=== PATIENT | female | born 1950 | race Caucasian/White ===

== ENCOUNTER → 2021-04-13 | Outpatient (CLI) | payer MEDICARE ==
--- NOTE | 2021-04-24 16:57 | PE ---
Nuclear medicine PET/CT HISTORY: M 25.561, solitary pulmonary nodule, initial Patient received 10.8 mCi F-18 FDG intravenously delayed scanning was performed from the skull base t o the mid thighs. Localization and attenuation correction CT scan was performed. No comparisons Chest and neck: There is no supraclavicular or cervical adenopathy. There is a mass in the right uppe r lobe measuring approximately 7.5 cm in transverse dimension by 4.7 cm in AP dimension extending fro m the right hilum to the right lateral pleural margin with associated hypermetabolic uptake SUV 14, r ight upper lobe bronchus apparently terminates within the mass. There are bilateral pulmonary nodules , approximately 50 nodules present, associated hypermetabolic uptake approximately 3.5-4.4, 2.4 for t he smaller lesions on the left, 6.6 posterior right lower lobe lung nodules to size 11. There is asso ciated very hypermetabolic uptake. No pericardial effusion. Subcarinal node shows hypermetabolic upta ke, SUV 2.6, retrocaval pretracheal adenopathy is present with associated uptake, SUV 8. There is a hiatal hernia present. Uptake along the tongue may be physiologic. ABDOMEN: No evident adrenal mass. No ascites. Cortical cyst is associated with the right kidney. No r etroperitoneal adenopathy. Extensive diverticular change noted in sigmoid colon. Probable physiologic uptake associated with the bowel. Osseous structures show no suspicious uptake. Degenerative disc changes and facet arthropathy noted i n the lower lumbar spine. IMPRESSION: Right upper lobe lung mass, findings may represent bronchogenic carcinoma, metastatic dis ease
== END | disposition home or self-care (01) ==
LOC: RADPETMAIN 16:52
PROVIDERS: ATTEND Internal Medicine Hematology & Oncology
DX: R91.8 Other nonspecific abnormal finding of lung field (principal)
CPT/HCPCS: 78815; A9552

== ENCOUNTER 2021-05-31 09:35 | Day surgery (SDC) | payer MEDICARE ==
[2021-05-28 15:53] VITALS: BMI 19.1
[~2021-05-31 09:35] MED LIST: ALBUTEROL NEB (CONC) 2.5 MG/0.5 ML INHALATION ONE; ATROPINE SULFATE 0.4 MG/ML 1 ML VIAL IM ONE; LACTATED RINGERS 1,000 ML IV SCH; LIDOCAINE 2% (PF) 20 MG/ML 5 ML VIAL INHALATION ONE; LIDOCAINE VISCOUS 300 MG/15 ML CUP MUCOUS MEM ONE; SODIUM CHLORIDE 0.9% 1,000 ML IV SCH
[2021-05-31] MEDS ORDERED: LACTATED RINGERS 1,000 ML IV ONE ×2 (10:14)
[2021-05-31] MEDS ORDERED: LIDOCAINE 1% (10MG/ML) FOR IV START INTRADERMA ONE (10:30)
--- NOTE | 2021-05-31 11:27 | CT ---
EXAMINATION TYPE: CT Chest juhi Beyer Protocol DATE OF EXAM: 05/31/2021 COMPARISON: PET/CT 04/13/2021 HISTORY: Pulmonary nodules/mass CT DLP: 570 mGycm Automated exposure control for dose reduction was used. FINDINGS: There are numerous pulmonary nodules the largest seen involving the right upper lobe extending from t he right hilum to the pleura measuring 6 x 5.5 cm. No consolidative process or pleural effusion. No p neumothorax. Linear areas of atelectasis or scar noted. Atherosclerotic change of the aorta but no aneurysm. Heart size normal with mild coronary artery calc ification. Trace of pericardial fluid noted. Benign-appearing right renal cyst and changes of diverticulosis. There is thickening of the bilateral adrenal glands metastases diagnosis. Small hiatal hernia noted. Hypertrophic and degenerative changes of the spine. IMPRESSION: 1. Numerous bilateral pulmonary masses the largest measuring 6 cm in the right upper lobe compatible with malignancy and metastases. 2. Bilateral thickening of the adrenal glands. The largest is noted on the left measuring 1.4 cm -6 H [place] units suggestive of adrenal adenoma being favored over metastasis
[2021-05-31] MEDS ORDERED: fentaNYL (PF) 50 MCG/ML 2 ML AMP ONE (12:11)
[2021-05-31] MEDS ORDERED: SUCCINYLCHOLINE CHLORIDE 100 MG/5 ML SYR IV ONE (12:11)
[2021-05-31] MEDS ORDERED: ePHEDrine SULFATE/0.9% NACL/PF 50 MG/5 ML SYRINGE IV ONE (12:11)
[2021-05-31] MEDS ORDERED: PHENYLEPHRINE-0.9% NACL SYG 1,000 MCG/10 ML SYRINGE ONE (12:11)
[2021-05-31] MEDS ORDERED: PROPOFOL 10 MG/ML 20 ML VIAL IV ONE (12:11)
[2021-05-31] MEDS ORDERED: LIDOCAINE 1% INJ 10MG/ML (20 ML MDV) ONE (12:11)
[2021-05-31] MEDS ORDERED: MIDAZOLAM 2 MG/2 ML VIAL ONE (12:11)
[2021-05-31 13:20] VITALS: TEMP 97.7
[2021-05-31 13:56] VITALS: RESP 16
[2021-05-31] MEDS ORDERED: ONDANSETRON 4 MG/2 ML VIAL ONE (14:12)
[2021-05-31] MEDS ORDERED: ONDANSETRON 4 MG/2 ML VIAL IVP ONE (14:16)
[2021-05-31 14:19] VITALS: PULSE 79
--- NOTE | 2021-05-31 14:19 | XR ---
EXAMINATION TYPE: XR chest 1V portable DATE OF EXAM: 05/31/2021 Comparison: Correlation PET/CT 04/13/2021 Clinical History: 71-year-old female Post right lung biopsy Findings: Heart upper limits of normal in size. Hyperinflation. Extensive bilateral rounded masses, consistent fluid in the right upper lobe. No appreciable pneumothorax. No pleural effusion. Impression: COPD with extensive bilateral rounded masses, confluent in the right upper lobe. No appreciable pneum othorax.
[2021-05-31 14:49] VITALS: BP 116/64
[2021-05-31 17:06] LABS: Color,BF Red
[2021-05-31 17:07] LABS: Appearance,BF Hazy; Nucleated Cells, Body Fluid 78 /uL; RBC, Body Fluid 8911 /uL
[2021-05-31 17:09] LABS: Mononuclear WBC,Body Fluid 70 %; Polynuclear WBC,Body Fluid 30 %; Total Cells Counted,Body Fluid 100
--- NOTE | 2021-05-31 22:25 | PCN ---
PROCEDURE NOTE PULMONARY/CRITICAL CARE PROCEDURE NOTE: PROCEDURE PERFORMED: Navigational bronchoscopy PREOPERATIVE DIAGNOSIS: Rule out lung cancer. POSTOPERATIVE DIAGNOSIS: Rule out lung cancer. There was informed consent and universal timeout. The patient's procedure was done in room #1 endoscopy. OPERATORS: Dr. Prescott and Dr. Salgado. ANESTHESIA: The anesthesiology team gave general anesthesia. DESCRIPTION OF PROCEDURE: After the patient was anesthetized, and on the ventilator, and with an orally placed endotracheal tube. The bronchoscope was inserted through the bronchoscope adapter connected to the endotracheal tube. We used a 800APP electromagnetic navigational system to help us identify the precise location of the lesion. Initially we did needle biopsies of the right upper lobe. Then, multiple transbronchial biopsies were done of the right upper lobe. Finally some endobronchial biopsies were done of the right upper lobe. Subsequent to all of that, which the patient tolerated well, we did brushes of the right upper lobe and a form of BAL of the right upper lobe. There was minimal bleeding. Pictures were taken. The right upper lobe was extremely narrowed, difficult to get into. We were able to traverse it though with some difficulty. The patient tolerated the procedure well. She was rock solid stable throughout the entire procedure. Chest x-ray will be done after the procedure. The patient will be recovered. There were no immediate complications. The tissue and other specimens will be sent to the laboratory for analysis. MMODL / IJN: [id number] /
== END 2021-05-31 15:18 | disposition home or self-care (01) ==
LOC: ORWHC2ENDO 09:35
PROVIDERS: ATTEND Internal Medicine Critical Care Medicine
DX: J44.9 Chronic obstructive pulmonary disease, unspecified (principal)
CPT/HCPCS: 31629; 31625; 31623; 31624; 31627; 89050; 71045; 71250; J2250; J2405; J2001; J3010; J2370; J0330; J2704

== ENCOUNTER → 2021-06-08 | Outpatient (CLI) | payer MEDICARE ==
--- NOTE | 2021-06-08 19:55 | MR ---
EXAMINATION TYPE: MR brain wo/w con DATE OF EXAM: 06/08/2021 COMPARISON: None HISTORY: Lung cancer. CONTRAST: Standard multiplanar, multisequence MRI departmental protocol utilizing 5 mL intravenous Gadavist mirna olinium contrast. There is cerebral cortical atrophy. There is no mass effect nor midline shift. There is no sign of in tracranial hemorrhage. Diffusion images show no evidence of an acute infarct. The brainstem is intact . There are multiple small foci of increased signal in the periventricular white matter. These measur e up to 5 mm. Total number is more than 25. The cerebellum is intact. Corpus callosum is intact. Sell a turcica is intact. The contrast images show no pathologic enhancement. IMPRESSION: Cerebral atrophy. White matter signal changes consistent with microvascular ischemia or demyelinating disease. No evidence of cortical infarct. No evidence of metastatic disease.
== END | disposition home or self-care (01) ==
LOC: RADMRIMAIN 18:42
PROVIDERS: ATTEND Internal Medicine Hematology & Oncology
DX: C34.11 Malignant neoplasm of upper lobe, right bronchus or lung (principal); G31.9 Degenerative disease of nervous system, unspecified
CPT/HCPCS: 70553; A9585

== ENCOUNTER → 2021-08-16 | Outpatient (CLI) | payer MEDICARE ==
[~2021-08-16] MED LIST changes: -ALBUTEROL NEB (CONC) 2.5 MG/0.5 ML INHALATION ONE; -ATROPINE SULFATE 0.4 MG/ML 1 ML VIAL IM ONE; +DEXAMETHASONE SOD PHOSPHATE 10 MG/ML 1 ML VIAL IV NR; +FAMOTIDINE 20 MG/2 ML VIAL IV NR; -LACTATED RINGERS 1,000 ML IV SCH; -LIDOCAINE 2% (PF) 20 MG/ML 5 ML VIAL INHALATION ONE; -LIDOCAINE VISCOUS 300 MG/15 ML CUP MUCOUS MEM ONE; +SODIUM CHLORIDE 0.9% 1,000 ML IV NR; -SODIUM CHLORIDE 0.9% 1,000 ML IV SCH; +SODIUM CHLORIDE 0.9% 500 ML 500 ML in EMPTY BAG 1 BAG IV PRN
[2021-08-16 12:45] VITALS: BP 124/63; PULSE 86; RESP 15; TEMP 98
[2021-08-16] MEDS: ONDANSETRON 16 MG in SODIUM CHLORIDE 0.9% 50 ML IVPB NR ×2 (13:10→13:15)
== END ==
LOC: PROCWHC3 12:30
PROVIDERS: ATTEND Internal Medicine Hematology & Oncology
DX: C34.11 Malignant neoplasm of upper lobe, right bronchus or lung (principal); Z88.5 Allergy status to narcotic agent; Z88.2 Allergy status to sulfonamides; Z91.012 Allergy to eggs
CPT/HCPCS: 96360; 96361; J1100; J2405

== ENCOUNTER → 2021-09-19 | Outpatient (CLI) | payer MEDICARE ==
[2021-09-19 13:55] LABS: African American GFR (CKD) >90 (>60 ml/min/1.73 sqM); Blood Urea Nitrogen 10 mg/dL (7-17); Non-African American GFR(CKD) 90 (>60 ml/min/1.73 sqM)
--- NOTE | 2021-09-19 14:46 | CT ---
EXAMINATION TYPE: CT chest w con DATE OF EXAM: 09/19/2021 COMPARISON: 05/31/2021 HISTORY: Lung cancer, stage 4 CT DLP: 97.7 mGycm Automated exposure control for dose reduction was used. CONTRAST: CT scan of the chest is performed with IV Contrast, patient injected with 95 mL of Isovue 300. FINDINGS: LUNGS: Right suprahilar mass is redemonstrated and currently measures 6.2 x 3.9 x 5.0 cm versus prior measurement of 6.7 x 5.2 x 6.1 cm. Enlarging mass right lower lobe currently measures 4.2 x 4.1 cm v ersus 3.7 x 3.3 cm. There are additional lung masses seen throughout both lung pleitez 2 numerous to c ount. MEDIASTINUM: There are no greater than 1 cm hilar or mediastinal lymph nodes. No pericardial effusi on is seen. Thoracic aorta is of normal caliber. The heart is not enlarged. UPPER ABDOMEN: Left adrenal mass is noted to measure 1.7 cm. OTHER: No additional significant abnormality is seen. IMPRESSION: Enlarging pulmonary nodules and masses noted bilaterally compatible with metastatic disease. Left adr enal mass.
== END | disposition home or self-care (01) ==
LOC: RADCTMAIN 12:59
PROVIDERS: ATTEND Internal Medicine Hematology & Oncology
DX: C34.11 Malignant neoplasm of upper lobe, right bronchus or lung (principal); R91.8 Other nonspecific abnormal finding of lung field; E27.8 Other specified disorders of adrenal gland
CPT/HCPCS: 82565; 84520; 71260; 36415; Q9967

== ENCOUNTER 2022-03-25 18:41 | Inpatient (IN) | payer MEDICARE ==
[2022-03-25] MEDS ORDERED: PANTOPRAZOLE 40 MG/10 ML VIAL IVP STA (19:18)
--- NOTE | 2022-03-25 19:21 | ED ---
GI Bleed HPI - General Chief complaint: GI Bleed Stated complaint: GI Bleed Time Seen by Provider: 03/25/22 18:46 Source: patient Mode of arrival: EMS Limitations: no limitations - History of Present Illness Initial comments: 72-year-old female with history of lung cancer on hospice presents to the emergency department with reported GI bleeding. States that she began having bright red blood with clots coming from her rectum which started 2 hours ago. She does have a history of similar in the past due to diverticulitis. She denies any abdominal pain. No rectal pain. She is not on any blood thinners. She is on hospice because of lung cancer. Sees Dr. Thurman and was on chemotherapy up until 5 weeks ago when she stopped. She denies any changes in her urination. No other alleviating, precipitating or modifying factors - Related Data Home Medications Medication Instructions Recorded Confirmed Bisoprolol-Hctz 5-6.25 mg [Ziac 1 tab PO DAILY 05/28/21 03/25/22 5-6.25 MG] Dicyclomine [Bentyl] 10 mg PO DAILY 05/28/21 03/25/22 Hydromorphone 1mg/Ml 2 mg PO BID 03/25/22 03/25/22 Hyoscyamine Sulfate [Levsin-Sl] 0.125 mg SL Q4H PRN 03/25/22 03/25/22 LORazepam [Ativan] 0.5 mg PO TID 03/25/22 03/25/22 Melatonin 3 mg PO HS 03/25/22 03/25/22 dexAMETHasone 4 mg PO BID 03/25/22 03/25/22 Allergies Allergy/AdvReac Type Severity Reaction Status Date / Time codeine AdvReac Nausea & Verified 03/25/22 21:38 Vomiting egg AdvReac Nausea & Verified 03/25/22 21:38 Vomiting sulfamethoxazole AdvReac Nausea & Verified 03/25/22 21:38 [From Bactrim] Vomiting trimethoprim [From Bactrim] AdvReac Nausea & Verified 03/25/22 21:38 Vomiting Review of Systems ROS Statement: Those systems with pertinent positive or pertinent negative responses have been documented in the HPI. ROS Other: All systems not noted in ROS Statement are negative. Past Medical History Past Medical History: Cancer, Hypertension Additional Past Medical History / Comment(s): diverticulitis. vertigo History of Any Multi-Drug Resistant Organisms: None Reported Past Surgical History: Appendectomy, Tonsillectomy Additional Past Surgical History / Comment(s): wedge from each ovary removed and fallopian tubes repaired Past Anesthesia/Blood Transfusion Reactions: No Reported Reaction Additional Past Anesthesia/Blood Transfusion Reaction / Comment(s): hx of vertigo Past Psychological History: Anxiety Smoking Status: Former smoker Past Alcohol Use History: Occasional Past Drug Use History: None Reported - Past Family History Mother Family Medical History: Cancer General Exam Limitations: no limitations General appearance: alert, in no apparent distress, cachectic Head exam: Present: atraumatic, normocephalic, normal inspection Eye exam: Present: normal appearance, PERRL, EOMI. Absent: scleral icterus, conjunctival injection, periorbital swelling ENT exam: Present: normal exam, mucous membranes moist Neck exam: Present: normal inspection. Absent: tenderness, meningismus, lymphadenopathy Respiratory exam: Present: normal lung sounds bilaterally. Absent: respiratory distress, wheezes, rales, rhonchi, stridor Cardiovascular Exam: Present: regular rate, normal rhythm, normal heart sounds. Absent: systolic murmur, diastolic murmur, rubs, gallop, clicks GI/Abdominal exam: Present: soft, normal bowel sounds. Absent: distended, tenderness, guarding, rebound, rigid Rectal exam: Present: bloody stool, other (copious bright red bloody stool with significant clotting). Absent: mass Extremities exam: Present: normal inspection, full ROM, normal capillary refill. Absent: tenderness, pedal edema, joint swelling, calf tenderness Back exam: Present: normal inspection Neurological exam: Present: alert, oriented X3, CN II-XII intact Psychiatric exam: Present: normal affect, normal mood Skin exam: Present: warm, dry, intact, normal color. Absent: rash Course Vital Signs 03/25/22 03/25/22 03/25/22 18:52 20:42 22:28 Temperature 97.5 F L Pulse Rate 87 90 89 Respiratory 16 22 20 Rate Blood Pressure 110/69 99/55 93/57 O2 Sat by Pulse 98 99 100 Oximetry - Reevaluation(s) Reevaluation #1: Spoke with Dr. Santana who was aware that the patient is in the emergency department 03/25/22 21:18 Reevaluation #2: Spoke with Dr. Nieto who agrees to admit the patient to the ICU 03/25/22 21:23 Medical Decision Making - Medical Decision Making Upon arrival patient is placed into room 24. Rectal exam is performed which does demonstrate significant rectal bleeding with large clots. IV is established laboratory studies are conduct. White count 18.7. Hemoglobin 10.7. Sodium 124. Lactic acid 2.7. CT is performed of the abdomen which demonstrates diverticulosis without diverticulitis. Patient is on hospice however I did speak with the patient and the family at bedside. They would like everything completed to rectify the patient's current condition. They agreed to disenroll from hospice and be admitted to the hospital. They admits to make the patient a full code in the event that she needs any type of procedure. Family does consent to blood. Because of this the patient will be admitted to the ICU. Spoke with Dr. Johnson who agreed to admit the patient. Spoke with Dr. Santana who is aware that the patient is in the emergency room. Spoke with Dr. Chris who agrees to admit the patient to the ICU. She remained in hemodynamically stable condition. - Lab Data Result diagrams: 03/26/22 05:54 03/26/22 05:54 Lab Results 03/25/22 03/25/22 03/25/22 Range/Units 19:21 19:21 19:21 WBC 18.7 H (3.8-10.6) k/uL RBC 3.54 L (3.80-5.40) m/uL Hgb 10.7 L (11.4-16.0) gm/dL Hct 33.4 L (34.0-46.0) % MCV 94.4 (80.0-100.0) fL MCH 30.3 (25.0-35.0) pg MCHC 32.0 (31.0-37.0) g/dL RDW 15.2 (11.5-15.5) % Plt Count 224 (150-450) k/uL MPV 7.1 Neutrophils % 86 % Lymphocytes % 8 % Monocytes % 4 % Eosinophils % 0 % Basophils % 1 % Neutrophils # 16.2 H (1.3-7.7) k/uL Lymphocytes # 1.5 (1.0-4.8) k/uL Monocytes # 0.7 (0-1.0) k/uL Eosinophils # 0.1 (0-0.7) k/uL Basophils # 0.1 (0-0.2) k/uL PT 10.4 (9.0-12.0) sec INR 0.9 (<1.2) APTT 23.1 (22.0-30.0) sec Sodium 124 L (137-145) mmol/L Potassium 4.5 (3.5-5.1) mmol/L Chloride 90 L (98-107) mmol/L Carbon Dioxide 30 (22-30) mmol/L Anion Gap 4 mmol/L BUN 22 H (7-17) mg/dL Creatinine 0.35 L (0.52-1.04) mg/dL Est GFR (CKD-EPI)AfAm >90 (>60 ml/min/1.73 sqM) Est GFR (CKD-EPI)NonAf >90 (>60 ml/min/1.73 sqM) Glucose 97 (74-99) mg/dL Lactic Ac Sepsis Rflx Plasma Lactic Acid Timothy (0.7-2.0) mmol/L Calcium 8.4 (8.4-10.2) mg/dL Magnesium 1.8 (1.6-2.3) mg/dL Total Bilirubin 0.3 (0.2-1.3) mg/dL AST 25 (14-36) U/L ALT 16 (4-34) U/L Alkaline Phosphatase 55 (38-126) U/L Troponin I (0.000-0.034) ng/mL Total Protein 4.7 L (6.3-8.2) g/dL Albumin 2.7 L (3.5-5.0) g/dL Stool Occult Blood (Negative) Blood Type Blood Type Recheck Bld Type Recheck Status Antibody Screen Spec Expiration Date 03/25/22 03/25/22 03/25/22 Range/Units 19:21 19:25 19:27 WBC (3.8-10.6) k/uL RBC (3.80-5.40) m/uL Hgb (11.4-16.0) gm/dL Hct (34.0-46.0) % MCV (80.0-100.0) fL MCH (25.0-35.0) pg MCHC (31.0-37.0) g/dL RDW (11.5-15.5) % Plt Count (150-450) k/uL MPV Neutrophils % % Lymphocytes % % Monocytes % % Eosinophils % % Basophils % % Neutrophils # (1.3-7.7) k/uL Lymphocytes # (1.0-4.8) k/uL Monocytes # (0-1.0) k/uL Eosinophils # (0-0.7) k/uL Basophils # (0-0.2) k/uL PT (9.0-12.0) sec INR (<1.2) APTT (22.0-30.0) sec Sodium (137-145) mmol/L Potassium (3.5-5.1) mmol/L Chloride (98-107) mmol/L Carbon Dioxide (22-30) mmol/L Anion Gap mmol/L BUN (7-17) mg/dL Creatinine (0.52-1.04) mg/dL Est GFR (CKD-EPI)AfAm (>60 ml/min/1.73 sqM) Est GFR (CKD-EPI)NonAf (>60 ml/min/1.73 sqM) Glucose (74-99) mg/dL Lactic Ac Sepsis Rflx Plasma Lactic Acid Timothy 2.7 H* (0.7-2.0) mmol/L Calcium (8.4-10.2) mg/dL Magnesium (1.6-2.3) mg/dL Total Bilirubin (0.2-1.3) mg/dL AST (14-36) U/L ALT (4-34) U/L Alkaline Phosphatase (38-126) U/L Troponin I 0.020 (0.000-0.034) ng/mL Total Protein (6.3-8.2) g/dL Albumin (3.5-5.0) g/dL Stool Occult Blood (Negative) Blood Type A Positive Blood Type Recheck No Previous Record Bld Type Recheck Status CABO Indicated Antibody Screen NEGATIVE Spec Expiration Date 03/28/2022232403/25/22 03/25/22 Range/Units 20:13 20:43 WBC (3.8-10.6) k/uL RBC (3.80-5.40) m/uL Hgb (11.4-16.0) gm/dL Hct (34.0-46.0) % MCV (80.0-100.0) fL MCH (25.0-35.0) pg MCHC (31.0-37.0) g/dL RDW (11.5-15.5) % Plt Count (150-450) k/uL MPV Neutrophils % % Lymphocytes % % Monocytes % % Eosinophils % % Basophils % % Neutrophils # (1.3-7.7) k/uL Lymphocytes # (1.0-4.8) k/uL Monocytes # (0-1.0) k/uL Eosinophils # (0-0.7) k/uL Basophils # (0-0.2) k/uL PT (9.0-12.0) sec INR (<1.2) APTT (22.0-30.0) sec Sodium (137-145) mmol/L Potassium (3.5-5.1) mmol/L Chloride (98-107) mmol/L Carbon Dioxide (22-30) mmol/L Anion Gap mmol/L BUN (7-17) mg/dL Creatinine (0.52-1.04) mg/dL Est GFR (CKD-EPI)AfAm (>60 ml/min/1.73 sqM) Est GFR (CKD-EPI)NonAf (>60 ml/min/1.73 sqM) Glucose (74-99) mg/dL Lactic Ac Sepsis Rflx Y Plasma Lactic Acid Timothy (0.7-2.0) mmol/L Calcium (8.4-10.2) mg/dL Magnesium (1.6-2.3) mg/dL Total Bilirubin (0.2-1.3) mg/dL AST (14-36) U/L ALT (4-34) U/L Alkaline Phosphatase (38-126) U/L Troponin I (0.000-0.034) ng/mL Total Protein (6.3-8.2) g/dL Albumin (3.5-5.0) g/dL Stool Occult Blood Positive H (Negative) Blood Type Blood Type Recheck Bld Type Recheck Status Antibody Screen Spec Expiration Date - EKG Data EKG Comments: EKG demonstrates sinus rhythm with occasional PVCs. Rate of 92. ID interval 128. QRS 97. QTC of 402. No acute ST segment elevations or depressions Critical Care Time Critical Care Time: Yes Critical Care Time: 35 minutes Disposition Clinical Impression: Hematochezia Disposition: ADMITTED IP TO THIS [facility] Condition: Serious Is patient prescribed a controlled substance at d/c from ED?: No Decision to Admit Reason: Admit from EC Decision Date: 03/25/22 Decision Time: 21:20
[2022-03-25 19:44] LABS: Basophils # (A) 0.1 k/uL (0-0.2); Basophils % (A) 1 %; Eosinophils # (A) 0.1 k/uL (0-0.7); Eosinophils % (A) 0 %; HCT 33.4 % (34.0-46.0); HGB 10.7 gm/dL (11.4-16.0); Lymphocytes # (A) 1.5 k/uL (1.0-4.8); Lymphocytes % (A) 8 %; MCH 30.3 pg (25.0-35.0); MCV 94.4 fL (80.0-100.0); Mean Platelet Volume 7.1; Monocytes # (A) 0.7 k/uL (0-1.0); Monocytes % (A) 4 %; Neutrophils # (A) 16.2 k/uL (1.3-7.7); Neutrophils % (A) 86 %; Platelet Count 224 k/uL (150-450); RBC 3.54 m/uL (3.80-5.40); RDW 15.2 % (11.5-15.5); WBC 18.7 k/uL (3.8-10.6)
[2022-03-25 20:08] LABS: ALT 16 U/L (4-34); AST 25 U/L (14-36); African American GFR (CKD) >90 (>60 ml/min/1.73 sqM); Albumin 2.7 g/dL (3.5-5.0); Alkaline Phosphatase 55 U/L (38-126); Anion Gap 4 mmol/L; Blood Urea Nitrogen 22 mg/dL (7-17); Calcium 8.4 mg/dL (8.4-10.2); Carbon Dioxide 30 mmol/L (22-30); Chloride 90 mmol/L (98-107); Glucose 97 mg/dL (74-99); Magnesium 1.8 mg/dL (1.6-2.3); Non-African American GFR(CKD) >90 (>60 ml/min/1.73 sqM); Potassium 4.5 mmol/L (3.5-5.1); Sodium 124 mmol/L (137-145); Total Bilirubin 0.3 mg/dL (0.2-1.3); Total Protein 4.7 g/dL (6.3-8.2)
[2022-03-25 20:21] LABS: INR 0.9 (<1.2); Partial Thromboplastin Time 23.1 sec (22.0-30.0); Prothrombin Time 10.4 sec (9.0-12.0)
--- NOTE | 2022-03-25 21:09 | CT ---
EXAMINATION TYPE: CT angio abdomen pelvis DATE OF EXAM: 03/25/2022 COMPARISON: None HISTORY: suspected GI Bleed w/ GI BLEED PROTOCOL CT DLP: 788.7 mGycm Automated exposure control for dose reduction was used. CONTRAST: Performed without and with IV Contrast, patient injected with 80 mL of Isovue 370. Images obtained from the diaphragm to the floor the pelvis without and then subsequently with IV cont rast Isovue 80 mL. There are 3-D post processed images. There are delayed images also. There are extensive masslike pulmonary infiltrates in the lower lung pleitez. There is right pleural e ffusion. Heart size is normal. There is normal contrast opacification of the kidneys. There is 3.5 cm cortical cyst lateral right kidney. There is arterial flow in the abdominal aorta. There is arterial flow in the celiac artery and superi or mesenteric artery. There is arterial flow in the renal and iliac arteries. There is arterial flow in both proximal femoral arteries. No evidence of hemodynamic stenosis. Abdominal aorta is atheromato us. There is rounded 5 cm mass in the inferior right lobe of the liver consistent with tumor. There is no ascites or free air. There are multiple sigmoid diverticula. No contrast extravasation seen to suggest active GI bleeding. There is small amount of presacral fluid. No ascites. There is Rebollar catheter in the urinary bladder . The lumbar spine is intact. No compression fracture. Bony pelvis appears intact. IMPRESSION: No evidence of active GI bleeding. Multiple pulmonary masses consistent with tumor. Mass in the inferior right lobe of the liver consist ent with tumor and increased compared to 01/21/2022 exam. Sigmoid diverticulosis.
[2022-03-25] MEDS ORDERED: NALOXONE 0.4 MG/ML 1 ML VIAL IV PRN (21:20)
[2022-03-25] MEDS ORDERED: HYOSCYAMINE SULFATE 0.125 MG TAB PO STA (22:25)
[2022-03-25] MEDS ORDERED: LORazepam 2 MG/ML INJ IV STA (22:26)
[2022-03-25] MEDS: SODIUM CHLORIDE 0.9% 1,000 ML IV SCH (22:28)
[2022-03-25 23:22] LABS: Glucose,Whole Blood 122 mg/dL (75-99)
[2022-03-26] MEDS ORDERED: MELATONIN 5 MG TABLET PO SCH (01:00)
--- NOTE | 2022-03-26 01:52 | P.HPIM ---
History of Present Illness H&P Date: 03/25/22 The patient is a 72-year-old female with a PMH of stage IV lung CTA (status post multiple rounds of chemotherapy), follows with Dr. Caballero, switched to hospice 6 weeks ago, who presents to the emergency room due to GI bleeding. History supplemented by the patient's at the bedside. The patient reportedly developed acute bright red blood per rectum earlier today. She reportedly had multiple large bloody bowel movements with large clots. She reports having a history of diverticulosis and a prior episode of GI bleeding requiring emergency room presentation without admission or blood transfusion. She reports feeling tired at the time of interview, which the states is more so than usual. He does report however that her color has improved significantly since being brought to the emergency room. Patient denied experiencing abdominal pain, nausea, or vomiting. She also denied chest pain, shortness of breath, fever, chills, cough. Laboratory evaluation in the emergency room revealed hemoglobin of 10.7, down from a baseline of 12.6 previously, with WBC count 18.7. Lactic acid was 2.7, sodium 124, and albumin 2.7. Review of systems: Pertinent positives and negatives as discussed in HPI, a complete review of systems was performed and all other systems are negative. Physical examination: General: No acute distress, appears older than stated age, cachectic female Derm: no unusual rashes/lesions no unusual ecchymoses, warm, dry Head: atraumatic, normocephalic, symmetric Eyes: EOMI, no lid lag, anicteric sclera, pupils equal round reactive to light ENT: Nose and ears atraumatic, no thrush, no pharyngeal erythema Neck: No thyromegaly, no cervical lymphadenopathy, trachea midline, supple Mouth: no lip lesion, mucus membranes moist Cardiovascular: S1S2 reg, no murmur, positive posterior tibial pulse bilateral, no edema, capillary refill less than 2 seconds Lungs: CTA bilateral, no rhonchi, no rales , no accessory muscle use Abdominal: soft, nontender to palpation, no guarding, no appreciable organomegaly Ext: no gross muscle atrophy, muscle strength 3 out of 5 in all 4 extremities grossly, no contractures, Neuro: CN II-XI grossly intact, light touch intact all 4 extremities, finger to nose within normal limits, Psych: Alert, oriented to person and place only, not oriented to time Assessment/plan Acute blood loss anemia secondary to GI bleeding with history of diverticulosis -GI consulted -Continue to monitor CBC -Nothing by mouth for now -IV fluids -Continue with Protonix -Patient admitted to medical ICU Leukocytosis, likely due to acute stressor with underlying malignancy -No signs of active infection at this time -Monitor for now Lactic acidosis -Monitor for resolution -IV fluids DVT prophylaxis -IPCD's The patient is admitted with an anticipated greater than 2 midnight stay for evaluation of gi bleeding CODE STATUS: Full Code Discussed with: Patient Anticipated discharge date: 03/[address]: Home Past Medical History Past Medical History: Cancer, Hypertension Additional Past Medical History / Comment(s): diverticulitis. vertigo History of Any Multi-Drug Resistant Organisms: None Reported Past Surgical History: Appendectomy, Tonsillectomy Additional Past Surgical History / Comment(s): wedge from each ovary removed and fallopian tubes repaired Past Anesthesia/Blood Transfusion Reactions: No Reported Reaction Additional Past Anesthesia/Blood Transfusion Reaction / Comment(s): hx of vertigo Past Psychological History: Anxiety Smoking Status: Former smoker Past Alcohol Use History: Occasional Past Drug Use History: None Reported - Past Family History Mother Family Medical History: Cancer Medications and Allergies Home Medications Medication Instructions Recorded Confirmed Type Bisoprolol-Hctz 5-6.25 mg [Ziac 1 tab PO DAILY 05/28/21 03/25/22 History 5-6.25 MG] Dicyclomine [Bentyl] 10 mg PO DAILY 05/28/21 03/25/22 History Hydromorphone 1mg/Ml 2 mg PO BID 03/25/22 03/25/22 History Hyoscyamine Sulfate [Levsin-Sl] 0.125 mg SL Q4H PRN 03/25/22 03/25/22 History LORazepam [Ativan] 0.5 mg PO TID 03/25/22 03/25/22 History Melatonin 3 mg PO HS 03/25/22 03/25/22 History dexAMETHasone 4 mg PO BID 03/25/22 03/25/22 History Allergies Allergy/AdvReac Type Severity Reaction Status Date / Time codeine AdvReac Nausea & Verified 03/25/22 21:38 Vomiting egg AdvReac Nausea & Verified 03/25/22 21:38 Vomiting sulfamethoxazole AdvReac Nausea & Verified 03/25/22 21:38 [From Bactrim] Vomiting trimethoprim [From Bactrim] AdvReac Nausea & Verified 03/25/22 21:38 Vomiting Physical Exam Vitals: Vital Signs Temp Pulse Resp BP Pulse Ox 03/25/22 22:28 89 20 93/57 100 03/25/22 20:42 90 22 99/55 99 03/25/22 18:52 97.5 F L 87 16 110/69 98 Intake and Output 03/25/22 03/25/22 03/26/22 14:59 22:59 06:59 Other: Weight 36.287 kg Results CBC & Chem 7: 03/25/22 19:21 03/25/22 19:21 Labs: Abnormal Lab Results - Last 24 Hours (Table) 03/25/22 03/25/22 03/25/22 Range/Units 19:21 19:21 19:27 WBC 18.7 H (3.8-10.6) k/uL RBC 3.54 L (3.80-5.40) m/uL Hgb 10.7 L (11.4-16.0) gm/dL Hct 33.4 L (34.0-46.0) % Neutrophils # 16.2 H (1.3-7.7) k/uL Sodium 124 L (137-145) mmol/L Chloride 90 L (98-107) mmol/L BUN 22 H (7-17) mg/dL Creatinine 0.35 L (0.52-1.04) mg/dL Plasma Lactic Acid Timothy 2.7 H* (0.7-2.0) mmol/L Total Protein 4.7 L (6.3-8.2) g/dL Albumin 2.7 L (3.5-5.0) g/dL Stool Occult Blood (Negative) 03/25/22 Range/Units 20:43 WBC (3.8-10.6) k/uL RBC (3.80-5.40) m/uL Hgb (11.4-16.0) gm/dL Hct (34.0-46.0) % Neutrophils # (1.3-7.7) k/uL Sodium (137-145) mmol/L Chloride (98-107) mmol/L BUN (7-17) mg/dL Creatinine (0.52-1.04) mg/dL Plasma Lactic Acid Timothy (0.7-2.0) mmol/L Total Protein (6.3-8.2) g/dL Albumin (3.5-5.0) g/dL Stool Occult Blood Positive H (Negative)
[2022-03-26 02:00] LABS: Anisocytosis Slight; HCT 30.8 % (34.0-46.0); HGB 10.1 gm/dL (11.4-16.0); MCH 30.9 pg (25.0-35.0); MCHC 32.7 g/dL (31.0-37.0); MCV 94.4 fL (80.0-100.0); Mean Platelet Volume 7.6; Platelet Count 213 k/uL (150-450); RBC 3.26 m/uL (3.80-5.40); RDW 16.2 % (11.5-15.5)
[2022-03-26 06:12] LABS: HCT 29.8 % (34.0-46.0); HGB 9.8 gm/dL (11.4-16.0); MCH 31.4 pg (25.0-35.0); MCHC 32.9 g/dL (31.0-37.0); MCV 95.7 fL (80.0-100.0); Mean Platelet Volume 7.1; Platelet Count 183 k/uL (150-450); RBC 3.12 m/uL (3.80-5.40); RDW 15.5 % (11.5-15.5); WBC 13.5 k/uL (3.8-10.6)
[2022-03-26] MEDS: SODIUM CHLORIDE 0.9% 1,000 ML IV SCH ×3 (06:39→21:16)
[2022-03-26 06:56] LABS: African American GFR (CKD) >90 (>60 ml/min/1.73 sqM); Anion Gap 3 mmol/L; Blood Urea Nitrogen 22 mg/dL (7-17); Calcium 7.8 mg/dL (8.4-10.2); Carbon Dioxide 29 mmol/L (22-30); Chloride 95 mmol/L (98-107); Glucose 75 mg/dL (74-99); Non-African American GFR(CKD) >90 (>60 ml/min/1.73 sqM); Potassium 4.1 mmol/L (3.5-5.1); Sodium 127 mmol/L (137-145)
[2022-03-26 08:41] LABS: Glucose,Whole Blood 79 mg/dL (75-99)
[2022-03-26] MEDS ORDERED: BISOPROLOL-HCTZ 5-6.25 MG 1 EACH TAB PO SCH (09:00)
[2022-03-26] MEDS ORDERED: LORazepam 0.5 MG TAB PO SCH (09:00)
[2022-03-26] MEDS ORDERED: DICYCLOMINE 10 MG CAP PO SCH (09:00)
[2022-03-26] MEDS ORDERED: NICOTINE 7MG/24HR PATCH TRANSDERM SCH (09:00)
--- NOTE | 2022-03-26 09:10 | P.CNPUL ---
History of Present Illness Consult date: 03/26/22 Chief complaint: GIB History of present illness: 72-year-old female patient with metastatic adenocarcinoma of the lung who was in hospice care, presented emergency department because of massive lower GI bleed with bright red blood per rectum. The family pulled the patient out of hospice care and they wanted everything to be done. Based on that, the patient was brought into the intensive care unit for further care. Apparently the patient was passing multiple large bloody bowel movements with large clots. She is known to have history of diverticulosis. Apparently the blood was quite continuous. In the emergency, the patient was found to have a hemoglobin of 10.7 which was down from a baseline of 12.6. Normal coagulation profile patient does not take any form of anticoagulants. No history of any melanotic stool or upper GI bleeding. Based on that, the patient was started on IV fluids. The patient was on IV Protonix. Gen. surgery and GI was consulted and the patient was admitted to the ICU. This morning, the patient's hemoglobin is at 9.8. Overnight she had stool further episodes of smaller bright red blood per rectum. Her white cell count is at 13.5. Sodium is at 127, potassium is at 4.4 with a BMI of 22 and a creatinine of 0.27. The lactic acid level dropped from 2.7 down to 2.2. Troponins are negative. 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 She is currently on oxygen at 2 L. She is also NPO. The patient was taken immunotherapy on outpatient basis w hich she fell and there was progression and based on that the treatment was discontinued. Review of Systems Constitutional: Reports fatigue, Reports lethargy, Reports poor appetite, Reports weight loss Eyes: denies as per HPI, denies blurred vision, denies bulging eye, denies decreased vision, denies diplopia, denies discharge, denies dry eye, denies irritation, denies itching, denies pain, denies photophobia, denies loss of peripheral vision, denies loss of vision, denies tunnel vision/blind spots Ears: deny: decreased hearing, ear discharge, earache, tinnitus Ears, nose, mouth and throat: Reports as per HPI Breasts: absent: as per HPI, change in shape, gynecomastia, masses, nipple discharge, pain, skin changes, swelling Cardiovascular: Reports decreased exercise tolerance, Reports dyspnea on exertion Respiratory: Reports cough, Reports cough with sputum Gastrointestinal: Reports BRBPR Genitourinary: Reports as per HPI Menstruation: Reports as per HPI Musculoskeletal: Reports as per HPI Musculoskeletal: absent: ankle pain, ankle stiffness, ankle swelling Integumentary: Reports as per HPI Neurological: Reports as per HPI, Reports weakness Psychiatric: Reports as per HPI Endocrine: Reports as per HPI Hematologic/Lymphatic: Reports as per HPI Allergic/Immunologic: Reports as per HPI Past Medical History Past Medical History: Cancer (Metastatic adenocarcinoma of the lung with hepatic metastases), Hypertension Additional Past Medical History / Comment(s): COPD, history of diverticulosis, history of vertigo History of Any Multi-Drug Resistant Organisms: None Reported Past Surgical History: Appendectomy, Tonsillectomy Additional Past Surgical History / Comment(s): wedge from each ovary removed and fallopian tubes repaired Past Anesthesia/Blood Transfusion Reactions: No Reported Reaction Additional Past Anesthesia/Blood Transfusion Reaction / Comment(s): hx of vertigo Past Psychological History: Anxiety Smoking Status: Former smoker Past Alcohol Use History: Occasional Past Drug Use History: None Reported - Past Family History Mother Family Medical History: Cancer Medications and Allergies Home Medications Medication Instructions Recorded Confirmed Type Bisoprolol-Hctz 5-6.25 mg [Ziac 1 tab PO DAILY 05/28/21 03/25/22 History 5-6.25 MG] Dicyclomine [Bentyl] 10 mg PO DAILY 05/28/21 03/25/22 History Hydromorphone 1mg/Ml 2 mg PO BID 03/25/22 03/25/22 History Hyoscyamine Sulfate [Levsin-Sl] 0.125 mg SL Q4H PRN 03/25/22 03/25/22 History LORazepam [Ativan] 0.5 mg PO TID 03/25/22 03/25/22 History Melatonin 3 mg PO HS 03/25/22 03/25/22 History dexAMETHasone 4 mg PO BID 03/25/22 03/25/22 History Allergies Allergy/AdvReac Type Severity Reaction Status Date / Time codeine AdvReac Nausea & Verified 03/25/22 21:38 Vomiting egg AdvReac Nausea & Verified 03/25/22 21:38 Vomiting sulfamethoxazole AdvReac Nausea & Verified 03/25/22 21:38 [From Bactrim] Vomiting trimethoprim [From Bactrim] AdvReac Nausea & Verified 03/25/22 21:38 Vomiting Physical Exam Vitals: Vital Signs Temp Pulse Resp BP Pulse Ox 03/26/22 07:00 90 14 99/60 96 03/26/22 06:00 91 27 H 98/56 97 03/26/22 05:00 93 17 111/57 95 03/26/22 04:00 97.6 F 86 18 109/64 99 03/26/22 03:00 85 12 81/53 97 03/26/22 02:00 86 20 91/51 100 03/26/22 01:00 86 12 93/61 98 03/26/22 00:00 97.8 F 92 26 H 108/71 97 03/25/22 23:26 93 27 H 91/61 97 03/25/22 23:20 97.6 F 91 18 91/61 98 03/25/22 22:28 89 20 93/57 100 03/25/22 20:42 90 22 99/55 99 03/25/22 18:52 97.5 F L 87 16 110/69 98 Intake and Output 03/25/22 03/26/22 03/26/22 22:59 06:59 14:59 Intake Total 910 130 Output Total 184 170 Balance 726 -40 Intake: IV 910 130 Sodium Chloride 0.9% 1, 910 130 000 ml @ 130 mls/hr IV . Q7H42M [facility] Rx#:[id number] Output: Urine 184 170 Other: Voiding Method Indwelling Catheter Weight 35.7 kg 38.9 kg General: No acute distress, appears older than stated age, cachectic female, currently on 2 L of oxygen by nasal cannula. She is having episodic congested cough, unable to bring up any sputum. She is awake and alert and following commands and answering questions. Significantly weak and debilitated at this point in time. Derm: no unusual rashes/lesions no unusual ecchymoses, warm, dry Head: atraumatic, normocephalic, symmetric Eyes: EOMI, no lid lag, anicteric sclera, pupils equal round reactive to light ENT: Nose and ears atraumatic, no thrush, no pharyngeal erythema Neck: No thyromegaly, no cervical lymphadenopathy, trachea midline, supple Mouth: no lip lesion, mucus membranes moist Cardiovascular: S1S2 reg, no murmur, positive posterior tibial pulse bilateral, no edema, capillary refill less than 2 seconds Lungs: CTA bilateral, no rhonchi, no rales , no accessory muscle use Abdominal: soft, nontender to palpation, no guarding, no appreciable organomegaly Ext: no gross muscle atrophy, muscle strength 3 out of 5 in all 4 extremities grossly, no contractures, Neuro: CN II-XI grossly intact, light touch intact all 4 extremities, finger to nose within normal limits, Psych: Alert, oriented to person and place only, not oriented to time Results - Laboratory Findings CBC and BMP: 03/26/22 05:54 03/26/22 05:54 ABG WBC 13.5 k/uL (3.8-10.6) H 03/26/22 05:54 RBC 3.12 m/uL (3.80-5.40) L 03/26/22 05:54 Hgb 9.8 gm/dL (11.4-16.0) L 03/26/22 05:54 Hct 29.8 % (34.0-46.0) L 03/26/22 05:54 MCV 95.7 fL (80.0-100.0) 03/26/22 05:54 MCH 31.4 pg (25.0-35.0) 03/26/22 05:54 MCHC 32.9 g/dL (31.0-37.0) 03/26/22 05:54 RDW 15.5 % (11.5-15.5) 03/26/22 05:54 Plt Count 183 k/uL (150-450) 03/26/22 05:54 MPV 7.1 03/26/22 05:54 Neutrophils % 86 % 03/25/22 19:21 Lymphocytes % 8 % 03/25/22 19:21 Monocytes % 4 % 03/25/22 19:21 Eosinophils % 0 % 03/25/22 19:21 Basophils % 1 % 03/25/22 19:21 Neutrophils # 16.2 k/uL (1.3-7.7) H 03/25/22 19:21 Lymphocytes # 1.5 k/uL (1.0-4.8) 03/25/22 19:21 Monocytes # 0.7 k/uL (0-1.0) 03/25/22 19:21 Eosinophils # 0.1 k/uL (0-0.7) 03/25/22 19:21 Basophils # 0.1 k/uL (0-0.2) 03/25/22 19:21 Anisocytosis Slight 03/26/22 01:30 PT 10.4 sec (9.0-12.0) 03/25/22 19:21 INR 0.9 (<1.2) 03/25/22 19:21 APTT 23.1 sec (22.0-30.0) 03/25/22 19:21 Sodium 127 mmol/L (137-145) L 03/26/22 05:54 Potassium 4.1 mmol/L (3.5-5.1) 03/26/22 05:54 Chloride 95 mmol/L (98-107) L 03/26/22 05:54 Carbon Dioxide 29 mmol/L (22-30) 03/26/22 05:54 Anion Gap 3 mmol/L 03/26/22 05:54 BUN 22 mg/dL (7-17) H 03/26/22 05:54 Creatinine 0.27 mg/dL (0.52-1.04) L 03/26/22 05:54 Est GFR (CKD-EPI)AfAm >90 (>60 ml/min/1.73 sqM) 03/26/22 05:54 Est GFR (CKD-EPI)NonAf >90 (>60 ml/min/1.73 sqM) 03/26/22 05:54 Glucose 75 mg/dL (74-99) 03/26/22 05:54 POC Glucose (mg/dL) 79 mg/dL (75-99) 03/26/22 08:40 POC Glu Clinical Provider Trainer ID Beatris Quijano 03/26/22 08:40 Lactic Ac Sepsis Rflx Y 03/25/22 23:49 Plasma Lactic Acid Timothy 2.2 mmol/L (0.7-2.0) H* 03/26/22 05:54 Calcium 7.8 mg/dL (8.4-10.2) L 03/26/22 05:54 Magnesium 1.8 mg/dL (1.6-2.3) 03/25/22 19:21 Total Bilirubin 0.3 mg/dL (0.2-1.3) 03/25/22 19:21 AST 25 U/L (14-36) 03/25/22 19:21 ALT 16 U/L (4-34) 03/25/22 19:21 Alkaline Phosphatase 55 U/L (38-126) 03/25/22 19:21 Troponin I 0.020 ng/mL (0.000-0.034) 03/25/22 19:21 Total Protein 4.7 g/dL (6.3-8.2) L 03/25/22 19:21 Albumin 2.7 g/dL (3.5-5.0) L 03/25/22 19:21 Stool Occult Blood Positive (Negative) H 03/25/22 20:43 PT/INR, D-dimer PT 10.4 sec (9.0-12.0) 03/25/22 19:21 INR 0.9 (<1.2) 03/25/22 19:21 Abnormal lab findings: Abnormal Labs 03/25/22 03/25/22 03/25/22 19:21 19:21 19:27 WBC 18.7 H RBC 3.54 L Hgb 10.7 L Hct 33.4 L RDW Neutrophils # 16.2 H Sodium 124 L Chloride 90 L BUN 22 H Creatinine 0.35 L POC Glucose (mg/dL) Plasma Lactic Acid Timothy 2.7 H* Calcium Total Protein 4.7 L Albumin 2.7 L Stool Occult Blood 03/25/22 03/25/22 03/25/22 20:43 22:50 23:20 WBC RBC Hgb Hct RDW Neutrophils # Sodium Chloride BUN Creatinine POC Glucose (mg/dL) 122 H Plasma Lactic Acid Timothy 2.6 H* Calcium Total Protein Albumin Stool Occult Blood Positive H 03/26/22 03/26/22 03/26/22 01:30 05:54 05:54 WBC 15.0 H 13.5 H RBC 3.26 L 3.12 L Hgb 10.1 L 9.8 L Hct 30.8 L 29.8 L RDW 16.2 H Neutrophils # Sodium 127 L Chloride 95 L BUN 22 H Creatinine 0.27 L POC Glucose (mg/dL) Plasma Lactic Acid Timothy Calcium 7.8 L Total Protein Albumin Stool Occult Blood 03/26/22 05:54 WBC RBC Hgb Hct RDW Neutrophils # Sodium Chloride BUN Creatinine POC Glucose (mg/dL) Plasma Lactic Acid Timothy 2.2 H* Calcium Total Protein Albumin Stool Occult Blood - Diagnostic Findings CT scan - chest: image reviewed Assessment and Plan Plan: Lower GI bleed, presented with bright red blood per rectum and a drop in hemog lobin down to 9.8. Currently hemodynamically stable. The patient received IV fluids. No packed RBC transfusion. The patient is not receiving any form of anticoagulants. Correlation profile is within normal limits. She has a known history of diverticulosis Metastatic adenocarcinoma of the lung with extensive pulmonary involvement with multiple lung masses bilaterally more so on the right in addition to an enlarging hepatic metastases. The patient was receiving immunotherapy on outpatient basis and they have the treatment was placed on hold approximately 5 weeks ago. The patient was in hospice care. COPD, currently on O2 at 2 L per minute nasal cannula Chronic dyspnea secondary to above Severe cachexia and malnourishment and the patient's body mass index is at 15.2. Blood loss anemia secondary to GI bleed Hypertension History of diverticulosis Plan Keep the patient by mouth for today Watch the patient for further bouts of GI bleed IV Protonix GI is on the rn case manager hospice hemoglobin No active bleeding overnight. She still passing small residual blood clots. IV fluids in the form of normal saline at the rate of 130 mL an hour Start the patient on bronchodilators and start the patient on DuoNeb nebulized treatments around the clock 4 times a day Transfer to oncology floor
[2022-03-26] MEDS: LORazepam 0.5 MG TAB PO PRN ×4 (09:34→21:07)
[2022-03-26] MEDS: PANTOPRAZOLE 40 MG/10 ML VIAL IVP SCH ×2 (09:34→21:07)
[2022-03-26] MEDS: dexAMETHasone 4 MG TAB PO SCH ×2 (09:34→21:07)
[2022-03-26] MEDS: HYOSCYAMINE ORAL DROPS 1.875 MG/15 ML BOTTLE SUBLINGUAL PRN ×3 (10:00→21:13)
[2022-03-26 10:11] VITALS: BMI 15.2
[2022-03-26 10:24] LABS: Amorphous Sediment,Urine Occasional /hpf; Appearance,Urine Cloudy (Clear); Bacteria,Urine Many /hpf; Bilirubin,Urine Negative (Negative); Blood,Urine Trace (Negative); Color,Urine Light Yellow; Glucose,Urine (UA) Negative (Negative); Ketones,Urine Negative (Negative); Leukocyte Esterase,Urine Moderate (Negative); Mucus,Urine Rare /hpf; Nitrite,Urine Positive (Negative); PH, Urine 7.5 (5.0-8.0); Protein,Urine Negative (Negative); RBC,Urine 5 /hpf (0-5); Specific Gravity,Urine 1.024 (1.001-1.035); Squamous Epithelial Cell,Urine <1 /hpf (0-4); Urobilinogen,Urine <2.0 mg/dL (<2.0); WBC,Urine 15 /hpf (0-5)
--- NOTE | 2022-03-26 11:11 | P.PN ---
Subjective Progress Note Date: 03/26/22 Patient seen this morning sitting in bed, conversing without distress. Saturating 99% on 2 L nasal cannula, blood pressures are stable at 92/49, heart rates are in the 90s. CBCs are stable, today's value was 9.8. Patient's sodium is still low at 127, lactic acid is still elevated at 2.2; patient remains on normal saline at 130 mL per hour. Urine output over the last 24 hours was only 350 mL, urine appears cloudy, UA has positive nitrite, many bacteria, positive leukocyte esterase. Gen: awake, alert HEENT: normocephalic, atraumatic, good hearing acuity, moist mucous membranes Resp: good air exchange, breathing comfortably with no accessory muscle use, clear to auscultation bilaterally CVS: good distal perfusion x 4, regular rate and rhythm without murmurs GI: soft, NTTP, ND : no SPT, no CVAT, lazar catheter is present MSK: no pitting edema, no clubbing Neuro: non-focal, moving all extremities Psych: cooperative, euthymic mood Assessment/plan: Acute blood loss anemia secondary to GI bleeding with history of diverticulosis -GI consulted -Continue to monitor CBC -Nothing by mouth for now -IV fluids -Continue with Protonix -Patient admitted to medical ICU Complicated urinary tract infection -start ceftriaxone 1g q24h -f/u UCx Lactic acidosis -Monitor for resolution -IV fluids Metastatic lung cancer -Patient is currently on hospice -She would like to return to hospice upon stabilization -Hospice consult to follow while in house DVT prophylaxis -IPCD's CODE STATUS: No code Discussed with: Patient Anticipated discharge date: 03/[address]: Home with hospice Objective - Vital Signs Vital signs: Vital Signs Temp 96.7 F L 03/26/22 08:00 Pulse 90 03/26/22 11:00 Resp 21 03/26/22 11:00 BP 92/49 03/26/22 11:00 Pulse Ox 99 03/26/22 11:00 FiO2 Intake & Output 03/25/22 03/26/22 03/26/22 18:59 06:59 18:59 Intake Total 910 750 Output Total 184 350 Balance 726 400 Weight 36.287 kg 38.9 kg 38.9 kg Intake: IV 910 650 Sodium Chloride 0.9% 1, 910 650 000 ml @ 130 mls/hr IV . Q7H42M [facility] Rx#:[id number] Oral 100 Output: Urine 184 350 Other: Voiding Method Indwelling Catheter Indwelling Catheter - Labs CBC & Chem 7: 03/26/22 05:54 03/26/22 05:54 Labs: Abnormal Lab Results - Last 24 Hours (Table) 03/25/22 03/25/22 03/25/22 Range/Units 19:21 19:21 19:27 WBC 18.7 H (3.8-10.6) k/uL RBC 3.54 L (3.80-5.40) m/uL Hgb 10.7 L (11.4-16.0) gm/dL Hct 33.4 L (34.0-46.0) % RDW (11.5-15.5) % Neutrophils # 16.2 H (1.3-7.7) k/uL Sodium 124 L (137-145) mmol/L Chloride 90 L (98-107) mmol/L BUN 22 H (7-17) mg/dL Creatinine 0.35 L (0.52-1.04) mg/dL POC Glucose (mg/dL) (75-99) mg/dL Plasma Lactic Acid Timothy 2.7 H* (0.7-2.0) mmol/L Calcium (8.4-10.2) mg/dL Total Protein 4.7 L (6.3-8.2) g/dL Albumin 2.7 L (3.5-5.0) g/dL Urine Appearance (Clear) Urine Blood (Negative) Urine Nitrite (Negative) Ur Leukocyte Esterase (Negative) Urine WBC (0-5) /hpf Amorphous Sediment (None) /hpf Urine Bacteria (None) /hpf Urine Mucus (None) /hpf Stool Occult Blood (Negative) 03/25/22 03/25/22 03/25/22 Range/Units 20:43 22:50 23:20 WBC (3.8-10.6) k/uL RBC (3.80-5.40) m/uL Hgb (11.4-16.0) gm/dL Hct (34.0-46.0) % RDW (11.5-15.5) % Neutrophils # (1.3-7.7) k/uL Sodium (137-145) mmol/L Chloride (98-107) mmol/L BUN (7-17) mg/dL Creatinine (0.52-1.04) mg/dL POC Glucose (mg/dL) 122 H (75-99) mg/dL Plasma Lactic Acid Timothy 2.6 H* (0.7-2.0) mmol/L Calcium (8.4-10.2) mg/dL Total Protein (6.3-8.2) g/dL Albumin (3.5-5.0) g/dL Urine Appearance (Clear) Urine Blood (Negative) Urine Nitrite (Negative) Ur Leukocyte Esterase (Negative) Urine WBC (0-5) /hpf Amorphous Sediment (None) /hpf Urine Bacteria (None) /hpf Urine Mucus (None) /hpf Stool Occult Blood Positive H (Negative) 03/26/22 03/26/22 03/26/22 Range/Units 01:30 05:54 05:54 WBC 15.0 H 13.5 H (3.8-10.6) k/uL RBC 3.26 L 3.12 L (3.80-5.40) m/uL Hgb 10.1 L 9.8 L (11.4-16.0) gm/dL Hct 30.8 L 29.8 L (34.0-46.0) % RDW 16.2 H (11.5-15.5) % Neutrophils # (1.3-7.7) k/uL Sodium 127 L (137-145) mmol/L Chloride 95 L (98-107) mmol/L BUN 22 H (7-17) mg/dL Creatinine 0.27 L (0.52-1.04) mg/dL POC Glucose (mg/dL) (75-99) mg/dL Plasma Lactic Acid Timothy (0.7-2.0) mmol/L Calcium 7.8 L (8.4-10.2) mg/dL Total Protein (6.3-8.2) g/dL Albumin (3.5-5.0) g/dL Urine Appearance (Clear) Urine Blood (Negative) Urine Nitrite (Negative) Ur Leukocyte Esterase (Negative) Urine WBC (0-5) /hpf Amorphous Sediment (None) /hpf Urine Bacteria (None) /hpf Urine Mucus (None) /hpf Stool Occult Blood (Negative) 03/26/22 03/26/22 Range/Units 05:54 09:50 WBC (3.8-10.6) k/uL RBC (3.80-5.40) m/uL Hgb (11.4-16.0) gm/dL Hct (34.0-46.0) % RDW (11.5-15.5) % Neutrophils # (1.3-7.7) k/uL Sodium (137-145) mmol/L Chloride (98-107) mmol/L BUN (7-17) mg/dL Creatinine (0.52-1.04) mg/dL POC Glucose (mg/dL) (75-99) mg/dL Plasma Lactic Acid Timothy 2.2 H* (0.7-2.0) mmol/L Calcium (8.4-10.2) mg/dL Total Protein (6.3-8.2) g/dL Albumin (3.5-5.0) g/dL Urine Appearance Cloudy H (Clear) Urine Blood Trace H (Negative) Urine Nitrite Positive H (Negative) Ur Leukocyte Esterase Moderate H (Negative) Urine WBC 15 H (0-5) /hpf Amorphous Sediment Occasional H (None) /hpf Urine Bacteria Many H (None) /hpf Urine Mucus Rare H (None) /hpf Stool Occult Blood (Negative)
--- NOTE | 2022-03-26 11:47 | P.CONS ---
History of Present Illness - Reason for Consult Consult date: 03/26/22 GI bleed Requesting physician: Madelyn Solis - Chief Complaint Rectal bleeding - History of Present Illness This is a pleasant 72-year-old female patient with metastatic adenocarcinoma of the lung who is under hospice care. 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 She presented emergency department because of lower GI bleed with bright red blood per rectum. The patient states she had 2 episodes at home of bright red blood per rectum in the toilet prior to coming into the emergency department. The family pulled the patient out of hospice care and they wanted everything to be done. Based on that, the patient was brought into the intensive care unit for further care. Apparently there was reported several more bowel movements in the emergency department with maroon and bright red blood with clots. She is known to have history of diverticulosis with the previous bleed. She believes her last colonoscopy was greater than 5 years ago. In the emergency, the patient was found to have a hemoglobin of 10.7 which was down from a baseline of 12.6. She denies any anticoagulation. The patient was admitted to the ICU. She is currently on IV Protonix twice a day. This morning, the patient's hemoglobin is at 9.8. Overnight she had two further episodes of smaller bright red blood per rectum. Her white cell count is at 13.5. Sodium is at 127, potassium is at 4.4 with a BUN of 22 and a creatinine of 0.27. The lactic acid level dropped from 2.7 down to 2.2. Troponins are negative. 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 She is currently on oxygen at 2 L. The patient was on immunotherapy on outpatient basis however felt there was no improvement and treatment was discontinued with transition to hospice care. Gastroenterology was consulted for further evaluation of GI bleed. CT angiogram abdomen and pelvis with no evidence of active bleeding. Multiple pulmonary masses consistent with tumor. Mass in the inferior right lobe of the liver consistent with tumor and increased compared to 01/21/2022. Sigmoid diverticulosis Review of Systems REVIEW OF SYSTEMS: CARDIOPULMONARY: No chest pain. Shortness of breath requiring oxygen. Gastrointestinal: Lower abdominal cramping. No nausea or vomiting. No hematemesis, coffee-ground emesis. Bright red blood mixed in stool, per rectum, with small clots. GENITOURINARY: No dysuria or hematuria. MUSCULOSKELETAL: Reports normal range of motion., Joint pain. SKIN: No rashes. No jaundice. ENDOCRINE: No chills, fevers. No excessive weight gain or loss. No polydipsia or polyuria. PSYCHIATRIC: Unremarkable. NEUROLOGY: No change in mental status. Denies dizziness, headache. ENT: Vision unremarkable. CONSTITUTIONAL: Thin. Decreased appetite. No fever, chills, night sweats. Past Medical History Past Medical History: Cancer (Metastatic adenocarcinoma of the lung with hepatic metastases), Hypertension Additional Past Medical History / Comment(s): COPD, history of diverticulosis, history of vertigo History of Any Multi-Drug Resistant Organisms: None Reported Past Surgical History: Appendectomy, Tonsillectomy Additional Past Surgical History / Comment(s): wedge from each ovary removed and fallopian tubes repaired Past Anesthesia/Blood Transfusion Reactions: No Reported Reaction Additional Past Anesthesia/Blood Transfusion Reaction / Comm: hx of vertigo Past Psychological History: Anxiety Smoking Status: Former smoker Past Alcohol Use History: Occasional Past Drug Use History: None Reported - Past Family History Mother Family Medical History: Cancer Medications and Allergies Home Medications Medication Instructions Recorded Confirmed Type Bisoprolol-Hctz 5-6.25 mg [Ziac 1 tab PO DAILY 05/28/21 03/25/22 History 5-6.25 MG] Dicyclomine [Bentyl] 10 mg PO DAILY 05/28/21 03/25/22 History Hydromorphone 1mg/Ml 2 mg PO BID 03/25/22 03/25/22 History Hyoscyamine Sulfate [Levsin-Sl] 0.125 mg SL Q4H PRN 03/25/22 03/25/22 History LORazepam [Ativan] 0.5 mg PO TID 03/25/22 03/25/22 History Melatonin 3 mg PO HS 03/25/22 03/25/22 History dexAMETHasone 4 mg PO BID 03/25/22 03/25/22 History Allergies Allergy/AdvReac Type Severity Reaction Status Date / Time codeine AdvReac Nausea & Verified 03/25/22 21:38 Vomiting egg AdvReac Nausea & Verified 03/25/22 21:38 Vomiting sulfamethoxazole AdvReac Nausea & Verified 03/25/22 21:38 [From Bactrim] Vomiting trimethoprim [From Bactrim] AdvReac Nausea & Verified 03/25/22 21:38 Vomiting Physical Exam Vitals: Vital Signs Temp Pulse Resp BP Pulse Ox 03/26/22 07:00 90 14 99/60 96 03/26/22 06:00 91 27 H 98/56 97 03/26/22 05:00 93 17 111/57 95 03/26/22 04:00 97.6 F 86 18 109/64 99 03/26/22 03:00 85 12 81/53 97 03/26/22 02:00 86 20 91/51 100 03/26/22 01:00 86 12 93/61 98 03/26/22 00:00 97.8 F 92 26 H 108/71 97 03/25/22 23:26 93 27 H 91/61 97 03/25/22 23:20 97.6 F 91 18 91/61 98 03/25/22 22:28 89 20 93/57 100 03/25/22 20:42 90 22 99/55 99 03/25/22 18:52 97.5 F L 87 16 110/69 98 Intake and Output 03/25/22 03/26/22 03/26/22 22:59 06:59 14:59 Intake Total 910 130 Output Total 184 170 Balance 726 -40 Intake: IV 910 130 Sodium Chloride 0.9% 1, 910 130 000 ml @ 130 mls/hr IV . Q7H42M [facility] Rx#:[id number] Output: Urine 184 170 Other: Voiding Method Indwelling Catheter Weight 35.7 kg 38.9 kg General appearance: The patient is alert, oriented, appears in no acute distress. HET: Head is normocephalic and atraumatic. Conjunctiva pink. Sclera anicteric. Neck: Supple without lymphadenopathy. Trachea midline. Heart: S1 S2. Regular rate and rhythm. Lungs: Clear to auscultation. Abdomen: Soft, lower abdominal tenderness with palpation, nondistended with bowel sounds. No guarding or rigidity. Skin: No rashes. No jaundice. Extremities: Normal skin color and turgor. No pedal edema. Neurological: No focal deficits. Alert and oriented x3. Results CBC & Chem 7: 03/26/22 05:54 03/26/22 05:54 Labs: Abnormal Lab Results - Last 24 Hours (Table) 03/25/22 03/25/22 03/25/22 Range/Units 19:21 19:21 19:27 WBC 18.7 H (3.8-10.6) k/uL RBC 3.54 L (3.80-5.40) m/uL Hgb 10.7 L (11.4-16.0) gm/dL Hct 33.4 L (34.0-46.0) % RDW (11.5-15.5) % Neutrophils # 16.2 H (1.3-7.7) k/uL Sodium 124 L (137-145) mmol/L Chloride 90 L (98-107) mmol/L BUN 22 H (7-17) mg/dL Creatinine 0.35 L (0.52-1.04) mg/dL POC Glucose (mg/dL) (75-99) mg/dL Plasma Lactic Acid Timothy 2.7 H* (0.7-2.0) mmol/L Calcium (8.4-10.2) mg/dL Total Protein 4.7 L (6.3-8.2) g/dL Albumin 2.7 L (3.5-5.0) g/dL Stool Occult Blood (Negative) 03/25/22 03/25/22 03/25/22 Range/Units 20:43 22:50 23:20 WBC (3.8-10.6) k/uL RBC (3.80-5.40) m/uL Hgb (11.4-16.0) gm/dL Hct (34.0-46.0) % RDW (11.5-15.5) % Neutrophils # (1.3-7.7) k/uL Sodium (137-145) mmol/L Chloride (98-107) mmol/L BUN (7-17) mg/dL Creatinine (0.52-1.04) mg/dL POC Glucose (mg/dL) 122 H (75-99) mg/dL Plasma Lactic Acid Timothy 2.6 H* (0.7-2.0) mmol/L Calcium (8.4-10.2) mg/dL Total Protein (6.3-8.2) g/dL Albumin (3.5-5.0) g/dL Stool Occult Blood Positive H (Negative) 03/26/22 03/26/2203/26/22 Range/Units 01:30 05:54 05:54 WBC 15.0 H 13.5 H (3.8-10.6) k/uL RBC 3.26 L 3.12 L (3.80-5.40) m/uL Hgb 10.1 L 9.8 L (11.4-16.0) gm/dL Hct 30.8 L 29.8 L (34.0-46.0) % RDW 16.2 H (11.5-15.5) % Neutrophils # (1.3-7.7) k/uL Sodium 127 L (137-145) mmol/L Chloride 95 L (98-107) mmol/L BUN 22 H (7-17) mg/dL Creatinine 0.27 L (0.52-1.04) mg/dL POC Glucose (mg/dL) (75-99) mg/dL Plasma Lactic Acid Timothy (0.7-2.0) mmol/L Calcium 7.8 L (8.4-10.2) mg/dL Total Protein (6.3-8.2) g/dL Albumin (3.5-5.0) g/dL Stool Occult Blood (Negative) 03/26/22 Range/Units 05:54 WBC (3.8-10.6) k/uL RBC (3.80-5.40) m/uL Hgb (11.4-16.0) gm/dL Hct (34.0-46.0) % RDW (11.5-15.5) % Neutrophils # (1.3-7.7) k/uL Sodium (137-145) mmol/L Chloride (98-107) mmol/L BUN (7-17) mg/dL Creatinine (0.52-1.04) mg/dL POC Glucose (mg/dL) (75-99) mg/dL Plasma Lactic Acid Timothy 2.2 H* (0.7-2.0) mmol/L Calcium (8.4-10.2) mg/dL Total Protein (6.3-8.2) g/dL Albumin (3.5-5.0) g/dL Stool Occult Blood (Negative) Comments: CT angiogram abdomen and pelvis with no evidence of active bleeding. Multiple pulmonary masses consistent with tumor. Mass in the inferior right lobe of the liver consistent with tumor and increased compared to 01/21/2022. Sigmoid diverticulosis Assessment and Plan (1) GI bleed Narrative/Plan: 72-year-old female with a history of non-small cell carcinoma compatible with pulmonary adenocarcinoma who has been following with oncology of 2 recently who went under hospice care. Patient apparently had 2 episodes yesterday of painless bright red blood per rectum. The family decided that they did not want to stay with hospice care and wanted everything done so brought her to the [facility]. She had further episodes of several stools mixed with blood, bright red as well as small clots. The patient's initial hemoglobin was 10.7 with a repeat of 9.8 today. She is denying any abdominal pain however does have some lower abdominal tenderness and cramping. The patient does have a history of diverticulosis and bleeding she's had a diverticular bleed in the past. Thinks her last colonoscopy was greater than 5 years ago. Unclear etiology at this time however likely to be diverticular in nature or other possible etiologies include ischemic colitis. Bleeding has significantly improved. Hemoglobin is stable. Patient is not wanting to proceed with any endoscopic evaluation at this time and would like conservative measures. Current Visit: Yes Status: Acute Code(s): K92.2 - GASTROINTESTINAL HEMO RRHAGE, UNSPECIFIED SNOMED Code(s): 22189404 (2) Metastatic adenocarcinoma to lung Current Visit: Yes Status: Acute Code(s): C78.00 - SECONDARY MALIGNANT NEOPLASM OF UNSPECIFIED LUNG SNOMED Code(s): 7283159492689 Plan: 1. Continue symptomatic and supportive care 2. Patient may have clear liquid diet 3. Daily CBC, transfuse for hemoglobin less than 7 4. Continue Protonix for GI prophylaxis 5. No plans on endoscopic evaluation at this time. Patient is declining any scopes at this time and would like conservative management. Thank you for this consultation, we will continue to follow. Dr. Roman Jackson I agree with the dictator's note, documented as a scribe by Sylwia Gastelum.
[2022-03-26] MEDS: IPRATROPIUM-ALBUTEROL 3 ML NEB INHALATION SCH ×3 (13:04→19:15)
--- NOTE | 2022-03-26 15:28 | CDI ---
Documentation Clarification Form Date: 03/26/2022 03:10:48 PM From: Kelley Urban CCS, CCDS Admit Date: 03/25/2022 09:20:00 PM Patient Name: Alta Pacheco Visit Number: [id number] Discharge Date: ATTENTION: The Clinical Documentation Specialists (CDI) and [facility] Coding Staff appreciate your assistance in clarifying documentation. Please respond to the clarification below the line at the bottom and electronically sign. The CDI & [facility] Coding staff will review the response and follow-up if needed. Please note: Queries are made part of the Legal Health Record. If you have any questions, please contact the author of this message via ITS. Dr. Tim Chris: Per the 03/25 History & Physical, the patient appears older than stated age, cachectic. Per the 03/26 Pulmonary/Critical Care Consult: No acute distress, appears older than stated age, cachectic female. Additional clarification regarding the patient's documented cachexia & malnourishment with low BMI is requested. History/Risk Factors per the 03/25 H/P: Lung cancer, Diverticulitis, Vertigo, Anxiety, Former smoker. Clinical Indicators: Presented to the ED via EMS on 03/25 with GI bleed with history of Diverticulitis. Admit with GI bleeding Current BMI (03/25): 15.2 03/26 Nutrition Assessment: Stage IV Lung CA status post Chemotherapy & Diverticulosis. Poor Nutrition Intake, 0% consumed, npo x1 day, concern for underfeeding. Stage II Pressure Injury to buttocks. Wt: 38.9 kg (bedscale) Ht 5 ft 3 in Underweight Treatment 03/25: IV Protonix, IV Na Chl 1,000 mls @ 130 mls/hr q7H, IV Ativan 0.5 mg x1. Please clarify the following: [ ] Mild Protein-Calorie Malnutrition [ ] Moderate Protein-Calorie Malnutrition [ x ] Severe Protein-Calorie Malnutrition [ ] Other condition, please specify: [ ] Unable to Determine (Template Last Revised: December 2020) MTDD
--- NOTE | 2022-03-26 15:35 | CDI ---
Documentation Clarification Form Date: 03/26/2022 03:31:00 PM From: Kelley Urban CCS, CCDS Admit Date: 03/25/2022 09:20:00 PM Patient Name: Alta Pacheco Visit Number: [id number] Discharge Date: ATTENTION: The Clinical Documentation Specialists (CDI) and [facility] Coding Staff appreciate your assistance in clarifying documentation. Please respond to the clarification below the line at the bottom and electronically sign. The CDI & [facility] Coding staff will review the response and follow-up if needed. Please note: Queries are made part of the Legal Health Record. If you have any questions, please contact the author of this message via ITS. Dr. Isha Christianson: A Stage II Pressure Injury is documented in the nursing Wound Assessment but not documented in the medical record. Based on this information and the findings below, is there an additional diagnosis that is clinically appropriate for this patient? History/Risk Factors per the 03/25 H/P: Lung cancer, Diverticulitis, Vertigo, Anxiety, Former smoker. Clinical Indicators: Presented to the ED via EMS on 03/25 with GI bleed with history of Diverticulitis. Admit with GI bleeding 03/26 Nutrition Assessment: Stage IV Lung CA status post Chemotherapy & Diverticulosis. Poor Nutrition Intake, 0% consumed, npo x1 day, concern for underfeeding. Stage II Pressure Injury to buttocks. Wt: 38.9 kg (bedscale). Ht 5 ft 3 in. Underweight, BMI 15.2 Treatment 03/25: IV Protonix, IV Na Chl 1,000 mls @ 130 mls/hr q7H, IV Ativan 0.5 mg x1. Is there an additional diagnosis that is clinically appropriate for this patient? [ ] Pressure Injury Stage II, Left Buttock, Present on Admission [ ] Pressure Injury Stage II, Right Buttock, Present on Admission [x] Pressure Injury Stage II, Bilateral Buttocks, Present on Admission [ ] Other Pressure Injury or Ulcer, please specify: [ ] Other, please specify: [ ] Unable to determine (Template Last Revised: December 2020) MTDD
[2022-03-26] MEDS ORDERED: MELATONIN 3 MG TABLET PO SCH (21:00)
[2022-03-26 21:03] VITALS: RESP 20
[2022-03-27 00:44] VITALS: BP 118/65; PULSE 122; TEMP 98.9
[2022-03-27] MEDS: SODIUM CHLORIDE 0.9% 1,000 ML IV SCH (04:01)
[2022-03-27] MEDS: IPRATROPIUM-ALBUTEROL 3 ML NEB INHALATION SCH (04:02)
--- NOTE | 2022-03-27 18:46 | P.DS ---
Providers Date of admission: 03/25/22 21:20 Expected date of discharge: 03/27/22 Attending physician: Patsy Johnson MD Consults: 03/25/22 21:20 Consult Physician Stat Consulting Provider: Tim Chris Consult Reason/Comments: acute LGIB Do you want consulting provider notified?: Already Contacted Consult Physician Urgent Consulting Provider: Selma Jackson Consult Reason/Comments: acute LGIB Do you want consulting provider notified?: Already Contacted Primary care physician: [facility] Course: Discharge Diagnosis: Acute blood loss anemia GI bleeding with history of diverticulosis Complicated urinary tract infection Lactic acidosis Metastatic lung cancer Severe protein calorie malnutrition Pressure ulcer stage II bilateral buttock, + admission Hyponatremia Hospital Course: The patient is a 72-year-old female with a PMH of stage IV lung CTA (status post multiple rounds of chemotherapy), follows with Dr. Caballero, switched to hospice 6 weeks ago, who presents to the emergency room due to GI bleeding. In the ER she underwent an extensive evaluation. Laboratory analysis revealed hemoglobin of 10.7, down from a baseline of 12.6 previously, with WBC count 18.7. Lactic acid was 2.7, sodium 124, and albumin 2.7. CT of the abdomen and pelvis showed no evidence of active GI bleeding but did demonstrate multiple pulmonary metastasis consistent with tumor, mass in the inferior lobe of the liver and sigmoid diverticulosis. She was seen by pulmonary who recommended bronchodilators and nebulized breathing treatment. She was seen by GI who recommended symptomatic supportive care with clear liquid diet. They did not plan on endoscopic evaluation as patient had requested conservative management. He was also found to have a comp. Urinary tract infection was started on Rocephin. Hospice was consulted. Nursing rounded overnight on 03/27, patient to have a dusky color with low oxygen levels. She was DO NOT RESUSCITATE. Family was called to come to bedside and patient subsequently on 03/27/22 at 0055. Patient on 03/27/2022. Do not see this patient during her hospital stay and just assisted with preparation of this discharge summary. Patient Condition at Discharge: Stable Plan - Discharge Summary Discharge Rx Participant: No New Discharge Prescriptions: No Action Hyoscyamine Sulfate [Levsin-Sl] 0.125 mg SL Q4H PRN PRN Reason: oral secretions Melatonin 3 mg PO HS Bisoprolol-Hctz 5-6.25 mg [Ziac 5-6.25 MG] 1 tab PO DAILY Dicyclomine [Bentyl] 10 mg PO DAILY dexAMETHasone 4 mg PO BID LORazepam [Ativan] 0.5 mg PO TID Hydromorphone 1mg/Ml 2 mg PO BID Discharge Medication List Bisoprolol-Hctz 5-6.25 mg [Ziac 5-6.25 MG] 1 tab PO DAILY 05/28/21 [History] Dicyclomine [Bentyl] 10 mg PO DAILY 05/28/21 [History] Hydromorphone 1mg/Ml 2 mg PO BID 03/25/22 [History] Hyoscyamine Sulfate [Levsin-Sl] 0.125 mg SL Q4H PRN 03/25/22 [History] LORazepam [Ativan] 0.5 mg PO TID 03/25/22 [History] Melatonin 3 mg PO HS 03/25/22 [History] dexAMETHasone 4 mg PO BID 03/25/22 [History] Follow up Appointment(s)/Referral(s): Michael Kern DO [Doctor of Osteopathic Medicine] - 1-2 days Discharge Disposition: - Preliminary Cause of Preliminary Cause of : metastatic lung cancer
== END 2022-03-27 05:45 | disposition expired | DRG 377 ==
LOC: EC 18:41 → 2SICU 21:20 → 5NMEDONC 03-26 15:17
PROVIDERS: ADMIT Internal Medicine; ATTEND Internal Medicine
DX: K57.31 Diverticulosis of large intestine without perforation or abscess with bleeding (principal); E43 Unspecified severe protein-calorie malnutrition; C34.90 Malignant neoplasm of unspecified part of unspecified bronchus or lung; D62 Acute posthemorrhagic anemia; E87.2 Acidosis; C78.7 Secondary malignant neoplasm of liver and intrahepatic bile duct; N39.0 Urinary tract infection, site not specified; Z68.1 Body mass index [BMI] 19.9 or less, adult; E87.1 Hypo-osmolality and hyponatremia; J44.9 Chronic obstructive pulmonary disease, unspecified; Z66 Do not resuscitate; L89.322 Pressure ulcer of left buttock, stage 2; L89.312 Pressure ulcer of right buttock, stage 2; I10 Essential (primary) hypertension; R42 Dizziness and giddiness; F41.9 Anxiety disorder, unspecified; Z99.81 Dependence on supplemental oxygen; Z88.5 Allergy status to narcotic agent; Z88.1 Allergy status to other antibiotic agents; Z91.012 Allergy to eggs; Z79.891 Long term (current) use of opiate analgesic; Z79.899 Other long term (current) drug therapy; Z87.19 Personal history of other diseases of the digestive system; Z87.891 Personal history of nicotine dependence; Z92.21 Personal history of antineoplastic chemotherapy; Z85.118 Personal history of other malignant neoplasm of bronchus and lung; Z88.2 Allergy status to sulfonamides; Z88.8 Allergy status to other drugs, medicaments and biological substances
CPT/HCPCS: 36415; 74174; 80048; 80053; 81001; 82272; 83605; 83735; 84484; 85025; 85027; 85610; 85730; 86850; 86900; 86901; 87077; 87086; 87186; 93005; 96361; 96374; 96375; 99291